=== PATIENT | male | born 1960 | race Caucasian/White ===

== ENCOUNTER 2017-01-10 16:39 | Emergency (ER) | payer MEDICAID ==
[~2017-01-10] VITALS: Ht 172.7 cm; Wt 67.2 kg
[~2017-01-10 16:39] MED LIST: ONDA4TAB7 PO; OXYC-223 PO
[2017-01-10] MEDS ORDERED: SODIUM CHLORIDE FLUSH 10ML SYR IVF ONE ×2 (17:00→17:30)
[2017-01-10] MEDS ORDERED: SODIUM CHLORIDE 0.9% 1,000ML IVBOLUS ONE (17:30)
[2017-01-10] MEDS ORDERED: ONDANSETRON 2MG/ML, 2ML IVPush ONE (17:30)
[2017-01-10] MEDS ORDERED: MORPHINE SULFATE 4 MG/ML, 1ML IVPush PRN (17:30)
[2017-01-10] MEDS ORDERED: MORPHINE SULFATE 4 MG/ML, 1ML ONE (17:33)
[2017-01-10] MEDS ORDERED: ONDANSETRON 2MG/ML, 2ML ONE (17:34)
[2017-01-10 17:40] LABS: ASPARTATE AMINO TRANSFERASE 15 U/L (15-37); BLOOD UREA NITROGEN 14 mg/dL (7-18)
[2017-01-10] MEDS ORDERED: IBUP200T5 PO (17:42)
[2017-01-10] MEDS ORDERED: MELA1TAB6 PO (17:42)
[2017-01-10] MEDS ORDERED: LACT1CAP43 PO (17:42)
[2017-01-10] MEDS ORDERED: CEFTRIAXONE 250 MG ONE (19:51)
[2017-01-10] MEDS ORDERED: AZITHROMYCIN 250 MG TABLET ONE (19:51)
[2017-01-10] MEDS ORDERED: LIDOCAINE 1%, 20ML ONE (19:52)
[2017-01-10] MEDS ORDERED: CEFTRIAXONE 1,000 MG IM ONE (20:00)
[2017-01-10] MEDS ORDERED: AZITHROMYCIN 500 MG TABLET PO ONE (20:00)
[2017-01-10 20:07] VITALS: BP 133/84
== END 2017-01-10 20:09 | disposition home or self-care (01) ==
LOC: ED 18:43
DX: N34.1 Nonspecific urethritis (principal); R10.33 Periumbilical pain; F17.200 Nicotine dependence, unspecified, uncomplicated; R10.11 Right upper quadrant pain; R10.31 Right lower quadrant pain; Z90.49 Acquired absence of other specified parts of digestive tract
CPT/HCPCS: 36415; 76700; 80053; 81003; 83690; 85025; 87491; 87591; 96361; 96372; 96374; 96375; J0696; J2405; J7030

== ENCOUNTER 2017-07-24 13:12 | Emergency (ER) | payer MEDICAID, OTHER ==
[~2017-07-24] VITALS: Ht 172.7 cm; Wt 68.4 kg
[~2017-07-24 13:12] MED LIST changes: +IBUP-1484 PO; +LACT1CAP43 PO; +MELA1TAB6 PO; -OXYC-223 PO; +OXYC-306 PO
[2017-07-24 14:12] VITALS: BP 159/101
[2017-07-24] MEDS ORDERED: ASPIRIN 81 MG TABLET CHEW ONE (14:16)
[2017-07-24 14:26] LABS: BASOPHILS # (AUTO) 0.02 x10^3/uL (0-0.1); BASOPHILS % (AUTO) 0 % (0-1); EOSINOPHILS # (AUTO) 0.19 x10^3/uL (0-0.4); EOSINOPHILS % (AUTO) 3 % (1-7); LYMPHOCYTES # (AUTO) 1.13 x10^3/uL (1-3.4); LYMPHOCYTES % (AUTO) 15 % (22-44); MD NO; MEAN CORPUSCULAR HEMOGLOBIN 30.8 pg (27.5-34.5); MEAN CORPUSCULAR HGB CONC 33.7 g/dL (33.2-36.2); MEAN CORPUSCULAR VOLUME 91.3 fL (81-97); MEAN PLATELET VOLUME 8.4 fL (7.4-10.4); MONOCYTES # (AUTO) 0.88 x10^3/uL (0.2-0.8); MONOCYTES % (AUTO) 12 % (2-9); NEUTROPHILS # (AUTO) 5.37 x10^3/uL (1.8-6.8); NEUTROPHILS % (AUTO) 71 % (42-75); PLATELET COUNT 233 x10^3/uL (130-400); RED BLOOD COUNT 5.21 x10^6/uL (4.38-5.82)
[2017-07-24] MEDS ORDERED: ASPIRIN 81 MG TABLET CHEW PO ONE (14:30)
[2017-07-24 14:35] LABS: ALANINE AMINOTRANSFERASE 26 U/L (12-78); ALBUMIN 3.8 g/dL (3.4-5.0); ANION GAP 7 mmol/L (5-15); CALCIUM 8.4 mg/dL (8.5-10.1); CHLORIDE 106 mmol/L (98-107); CREATININE 0.82 mg/dL (0.7-1.3)
[2017-07-24 14:39] LABS: ALKALINE PHOSPHATASE 105 U/L (45-117); BILIRUBIN,TOTAL 0.5 mg/dL (0.2-1.0); TOTAL PROTEIN 7.2 g/dL (6.4-8.2); TROPONIN I < 0.015 ng/mL (0.000-0.045)
== END 2017-07-24 15:39 | disposition home or self-care (01) ==
LOC: ED 15:33
DX: J98.01 Acute bronchospasm (principal); J44.9 Chronic obstructive pulmonary disease, unspecified; J44.1 Chronic obstructive pulmonary disease with (acute) exacerbation; M94.0 Chondrocostal junction syndrome [Tietze]; F17.210 Nicotine dependence, cigarettes, uncomplicated; Z90.49 Acquired absence of other specified parts of digestive tract
CPT/HCPCS: 36415; 71046; 80053; 84484; 85025; 85379; 93005; 99285

== ENCOUNTER 2019-07-03 20:12 | Inpatient (IN) | payer OTHER ==
[~2019-07-03] VITALS: Ht 172.7 cm; Wt 78.4 kg
[~2019-07-03 20:12] MED LIST changes: -IBUP-1484 PO; +IBUP-1902 PO
--- NOTE | 2019-07-03 20:21 | NUR ---
ICE PACK GIVEN
--- NOTE | 2019-07-03 21:10 | NUR ---
+FX. PA AWARE. ON ICE PACK. C/O PAIN, WILL NOTIFY PA. R WRIST RADIAL PULSE 1+, L WRIST 2+. CAN SLIGHTLY WIGGLE R FINGERS, BUT WITH PAIN. CALL FLORES IN REACH.
[2019-07-03] MEDS ORDERED: ONDANSETRON 2MG/ML, 2ML ONE (21:58)
[2019-07-03] MEDS ORDERED: MORPHINE SULFATE 4 MG/ML, 1ML ONE (21:59)
[2019-07-03] MEDS: MORPHINE SULFATE 4 MG/ML, 1ML IVPush PRN (22:16)
--- NOTE | 2019-07-03 22:16 | NUR ---
piv est. meds per aug. dr martínez in room for eval. pt to go to ct then come back and do conscious sedation to reduce wrist. pt aware and agrees w/ poc. as.
[2019-07-03] MEDS ORDERED: ONDANSETRON 2MG/ML, 2ML IVPush ONE (22:30)
[2019-07-03] MEDS ORDERED: SODIUM CHLORIDE FLUSH 10ML SYR IVF ONE (22:30)
--- NOTE | 2019-07-03 23:00 | NUR ---
PT UNABLE TO DO BREATHYLIZER, HX COPD. ERP AWARE.
[2019-07-03] MEDS ORDERED: PROPOFOL 10 MG/ML, 20ML ONE ×2 (23:09→23:15)
[2019-07-03] MEDS ORDERED: CEFAZOLIN PMX 1GM/50ML 50 ML IV ONE (23:30)
[2019-07-03] MEDS ORDERED: PROPOFOL 10 MG/ML, 20ML IVPush ONE (23:30)
--- NOTE | 2019-07-03 23:32 | NUR ---
PROCEDURAL SEDATION DONE, PT RESTING IN GURNEY A THIS TIME. SPLIN PLACED PER ERP INSTRUCTION. PT TO BE ADMITTED. WILL CONTINUE TO MONITOR PT. SEE PROCEDURAL SEDATION PACKET FOR VITALS.
[2019-07-03] MEDS ORDERED: CEFAZOLIN PMX 1GM/50ML 50 ML ONE (23:40)
--- NOTE | 2019-07-03 23:40 | NUR ---
250CC OF PROPOFOL WASTED WITH JC RN IN [facility].
--- NOTE | 2019-07-04 00:09 | NUR ---
PT RESTING CALMLY IN RWADSWORTH. VITALS REMAIN STABLE.
[2019-07-04] MEDS ORDERED: MORPHINE SULFATE 4 MG/ML, 1ML ONE (00:13)
[2019-07-04] MEDS: MORPHINE SULFATE 4 MG/ML, 1ML IVPush PRN (00:16)
[2019-07-04] MEDS ORDERED: BISACODYL 10 MG SUPP PR PRN (00:30)
[2019-07-04] MEDS ORDERED: VANCOMYCIN PER PHARMACY MC PRN (00:30)
[2019-07-04] MEDS ORDERED: ONDANSETRON 2MG/ML, 2ML IVPush PRN (00:30)
[2019-07-04] MEDS ORDERED: TEMPLATE NON-FORMULARY MED. (Melatonin** 1 MG) HOMEMEDPO PRN (00:30)
[2019-07-04 01:06] LABS: INTERNATIONAL NORMALIZED RATIO 0.93 (0.93-1.1); PROTHROMBIN TIME 9.8 Seconds (9.6-11.5)
[2019-07-04] MEDS ORDERED: FLUT1DIS3 INH (01:06)
[2019-07-04] MEDS ORDERED: ALBU8.5H8 INH (01:06)
--- NOTE | 2019-07-04 01:17 | NUR ---
PT RESTING CALMLY IN GURNEY, AWAITING ROOM ASSIGNMENT. PT STATES PAIN IN CONTROLLED WITH ARM IN ELEVATED POSITION AT THIS TIME.
[2019-07-04] MEDS ORDERED: PIPERACILLIN/TAZO/PMX 3.375GM 50 ML ONE (01:26)
[2019-07-04] MEDS ORDERED: NICOTINE 21 MG/24 HR PATCH.TD24 ONE (01:27)
[2019-07-04] MEDS: PIPERACILLIN/TAZO/PMX 3.375GM 50 ML IV SCH ×3 (01:42→17:39)
[2019-07-04] MEDS: NICOTINE 21 MG/24 HR PATCH.TD24 TD SCH (01:42)
--- NOTE | 2019-07-04 01:43 | NUR ---
PT RESTING IN BED, VSS, NO COMPLAINTS, NICOTINE PATCH APPLIED ON LEFT SHOULDER
[2019-07-04] MEDS ORDERED: morphine SULFATE 10 MG/ML, 1ML ONE ×2 (02:06→05:34)
[2019-07-04] MEDS: morphine SULFATE 10 MG/ML, 1ML IVPush PRN ×4 (02:15→13:11)
[2019-07-04 03:06] LABS: BASOPHILS # (AUTO) 0.04 x10^3/uL (0-0.1); BASOPHILS % (AUTO) 0 % (0-1); EOSINOPHILS # (AUTO) 0.12 x10^3/uL (0-0.4); EOSINOPHILS % (AUTO) 1 % (1-7); LYMPHOCYTES # (AUTO) 1.48 x10^3/uL (1-3.4); LYMPHOCYTES % (AUTO) 14 % (22-44); MD NO; MEAN CORPUSCULAR HEMOGLOBIN 30.6 pg (27.5-34.5); MEAN CORPUSCULAR VOLUME 92.8 fL (81-97); MEAN PLATELET VOLUME 9.9 fL (7.4-10.4); MONOCYTES # (AUTO) 0.56 x10^3/uL (0.2-0.8); MONOCYTES % (AUTO) 5 % (2-9); NEUTROPHILS # (AUTO) 8.62 x10^3/uL (1.8-6.8); NEUTROPHILS % (AUTO) 80 % (42-75); PLATELET COUNT 250 x10^3/uL (130-400); RED BLOOD COUNT 5.21 x10^6/uL (4.38-5.82); RED CELL DISTRIBUTION WIDTH 14.2 % (9.4-14.8)
[2019-07-04 03:25] LABS: ALANINE AMINOTRANSFERASE 20 U/L (12-78); ALBUMIN 3.8 g/dL (3.4-5.0); ANION GAP 9 mmol/L (5-15); CHLORIDE 112 mmol/L (98-107); CREATININE 0.86 mg/dL (0.7-1.3)
[2019-07-04 03:28] LABS: ALKALINE PHOSPHATASE 92 U/L (45-117); BILIRUBIN,TOTAL 0.3 mg/dL (0.2-1.0); TOTAL PROTEIN 6.6 g/dL (6.4-8.2)
--- NOTE | 2019-07-04 03:35 | NUR ---
PT UP TO BR WITH STEADY GAIT, STATES MORPHINE STILL HELPING A BIT, VSS, NO ADDITIONAL COMPLAINTS, AWAITING ROOM
--- NOTE | 2019-07-04 04:33 | NUR ---
PT MOVED TO RM 22, REPORT TO KARIN MORTON REQUESTING QUIETER ROOM WITH A TV.
[2019-07-04 06:30] VITALS: BP 119/72
[2019-07-04] MEDS ORDERED: PHARMACOKINETIC CONSULTATION MC ONE (06:30)
[2019-07-04] MEDS ORDERED: PHARMACOKINETIC MONITORING MC PRN (06:30)
[2019-07-04 06:40] VITALS: BP 119/72
[2019-07-04] MEDS: VANCOMYCIN 1,200 MG in SODIUM CHLORIDE 0.9% 250 ML IV SCH ×2 (07:14→18:32)
[2019-07-04] MEDS ORDERED: LACTOBACILLUS CHEW TABLET PO SCH (09:00)
[2019-07-04 13:17] VITALS: BP 155/92
[2019-07-04] MEDS ORDERED: BUPIVACAINE/PF-EPI 0.25% 1:200K ONE (14:14)
[2019-07-04] MEDS ORDERED: MIDAZOLAM 1 MG/ML, 2ML ONE (14:14)
[2019-07-04] MEDS ORDERED: BUPIVACAINE/PF 0.5% ONE (14:14)
[2019-07-04] MEDS ORDERED: FENTANYL PF 100 MCG/2ML ONE (14:14)
[2019-07-04] MEDS ORDERED: PHENYLEPHRINE 10 MG/ML ONE (14:31)
[2019-07-04] MEDS ORDERED: MEPERIDINE/PF 25MG/ML,1ML IVPush PRN (15:00)
[2019-07-04] MEDS ORDERED: PROMETHAZINE 25 MG/ML, 1ML IV PRN (15:00)
[2019-07-04] MEDS ORDERED: ALBUTEROL/IPRATROPIUM 2.5MG/0.5MG, 3 ML NPPB PRN (15:00)
[2019-07-04] MEDS ORDERED: HYDROmorphone 2 MG/ML, 1ML IVPush PRN (15:00)
[2019-07-04] MEDS ORDERED: ACETAMINOPHEN 325 MG TABLET PO PRN (15:00)
[2019-07-04] MEDS ORDERED: FENTANYL PF 100 MCG/2ML IV PRN (15:00)
[2019-07-04] MEDS ORDERED: OXYcodone 5 MG/5 ML ORAL.SOL UDC PO PRN ×2 (15:00→18:00)
[2019-07-04] MEDS ORDERED: hydrALAzine 20 MG/ML, 1ML IV PRN (15:00)
[2019-07-04] MEDS ORDERED: CEFAZOLIN 1,000 MG ONE (15:09)
[2019-07-04] MEDS ORDERED: ONDANSETRON 2MG/ML, 2ML ONE (15:09)
[2019-07-04] MEDS ORDERED: PROPOFOL 10 MG/ML, 20ML ONE (15:09)
[2019-07-04] MEDS ORDERED: DEXAMETHASONE 4 MG/ML, 1ML ONE (15:09)
[2019-07-04] MEDS ORDERED: LIDOCAINE-MPF 2% ,5ML ONE (15:09)
[2019-07-04] MEDS ORDERED: ROPIvacaine/PF 0.5%, 30 ML ONE (15:09)
[2019-07-04] MEDS ORDERED: MEPERIDINE/PF 25MG/ML,1ML ONE (15:36)
[2019-07-04] MEDS ORDERED: ONDANSETRON 2MG/ML, 2ML IV ONE (18:00)
[2019-07-04 18:16] VITALS: BP 111/71
[2019-07-04] MEDS: POTASSIUM CHLORIDE 20 MEQ in D5%-0.45% NACL 1,000 ML IV SCH (18:32)
[2019-07-04] MEDS ORDERED: IBUPROFEN 600 MG TABLET PO PRN (20:00)
[2019-07-04] MEDS ORDERED: MELATONIN 3 MG TABLET PO PRN (20:00)
[2019-07-04] MEDS: BUDESONIDE 0.5 MG/2 ML INHA NPPB SCH (21:00)
[2019-07-04] MEDS: ALBUTEROL SULFATE 2.5 MG/3 ML NPPB SCH (21:00)
[2019-07-05] MEDS: CEFAZOLIN PMX 1GM/50ML 50 ML IVPB SCH ×2 (00:07→06:20)
[2019-07-05 00:34] VITALS: BP 100/63
[2019-07-05] MEDS: POTASSIUM CHLORIDE 20 MEQ in D5%-0.45% NACL 1,000 ML IV SCH (04:06)
[2019-07-05 04:42] VITALS: BP 100/63
[2019-07-05] MEDS: OXYcodone/APAP 5/325MG TABLET PO PRN ×3 (05:23→13:56)
[2019-07-05] MEDS: ALBUTEROL SULFATE 2.5 MG/3 ML NPPB SCH ×4 (06:00→14:04)
[2019-07-05 06:06] LABS: BASOPHILS # (AUTO) 0.02 x10^3/uL (0-0.1); BASOPHILS % (AUTO) 0 % (0-1); EOSINOPHILS # (AUTO) 0.02 x10^3/uL (0-0.4); EOSINOPHILS % (AUTO) 0 % (1-7); LYMPHOCYTES # (AUTO) 1.09 x10^3/uL (1-3.4); LYMPHOCYTES % (AUTO) 10 % (22-44); MD NO; MEAN CORPUSCULAR HEMOGLOBIN 30.7 pg (27.5-34.5); MEAN CORPUSCULAR HGB CONC 33.2 g/dL (33.2-36.2); MEAN CORPUSCULAR VOLUME 92.4 fL (81-97); MEAN PLATELET VOLUME 9.2 fL (7.4-10.4); MONOCYTES # (AUTO) 1.41 x10^3/uL (0.2-0.8); MONOCYTES % (AUTO) 13 % (2-9); NEUTROPHILS # (AUTO) 8.43 x10^3/uL (1.8-6.8); NEUTROPHILS % (AUTO) 77 % (42-75); PLATELET COUNT 224 x10^3/uL (130-400); RED BLOOD COUNT 4.86 x10^6/uL (4.38-5.82); RED CELL DISTRIBUTION WIDTH 14.1 % (9.4-14.8)
[2019-07-05] MEDS: NICOTINE 21 MG/24 HR PATCH.TD24 TD SCH (06:20)
[2019-07-05 06:47] VITALS: BP 113/75
[2019-07-05] MEDS: BUDESONIDE 0.5 MG/2 ML INHA NPPB SCH (07:35)
[2019-07-05] MEDS ORDERED: LACTOBACILLUS CHEW TABLET PO SCH (09:00)
[2019-07-05] MEDS ORDERED: ENOXAPARIN 40 MG/0.4 ML SQ SCH (09:00)
[2019-07-05] MEDS ORDERED: OXYC5TAB3 PO (11:15)
[2019-07-05 12:17] VITALS: BP 116/71
[2019-07-05] MEDS ORDERED: CEPH-368 PO (14:24)
[2019-07-05] MEDS ORDERED: OXYC5CAP2 PO (14:25)
== END 2019-07-05 14:16 | disposition home or self-care (01) | DRG 512 ==
LOC: ED 23:41 → EDIP 07-04 00:03 → 4NE 07-04 05:45 → DCLOUNGE 07-05 13:59
PROVIDERS: ADMIT Hospitalist; ATTEND Hospitalist
PROC: 3E0T3BZ Introduction of Anesthetic Agent into Peripheral Nerves and Plexi, Percutaneous Approach (ICD-10-PCS; 2019-07-04)
PROC: 0PSHXZZ Reposition Right Radius, External Approach (ICD-10-PCS; 2019-07-04)
PROC: 2W3CX1Z Immobilization of Right Lower Arm using Splint (ICD-10-PCS; 2019-07-04)
PROC: 0PSH04Z Reposition Right Radius with Internal Fixation Device, Open Approach (ICD-10-PCS; principal; 2019-07-04 14:30)
DX: S52.571A Other intraarticular fracture of lower end of right radius, initial encounter for closed fracture (principal); I10 Essential (primary) hypertension; F17.210 Nicotine dependence, cigarettes, uncomplicated; J43.9 Emphysema, unspecified; W00.0XXA Fall on same level due to ice and snow, initial encounter; Y93.89 Activity, other specified; Y92.89 Other specified places as the place of occurrence of the external cause; Y99.8 Other external cause status
CPT/HCPCS: 25605; 36415; 73090; 73110; 76000; 96365; 96375; 96376; 99285; J3490; J7626; 80053; 85025; 85610; 94640; 99152; G0378; J0690; J1100; J1650; J2250; J2405; J2543; J2704; J2795; J3010; J3370; J3480; J2175; J2270; J2370; J7050